=== PATIENT | male | born 1970 | race African-American/Black ===

== ENCOUNTER 2025-01-07 09:12 | Outpatient (CLI) | payer OTHER, MEDICAID | END 2025-01-07 09:13 | disposition home or self-care (01) | LOC: CSHSLEEP 09:12 | PROVIDERS: ATTEND Family Medicine | DX: G47.33 Obstructive sleep apnea (adult) (pediatric) (principal); E66.9 Obesity, unspecified; Z68.41 Body mass index [BMI] 40.0-44.9, adult; I10 Essential (primary) hypertension | CPT/HCPCS: 95800 ==